=== PATIENT | male | born 1970 | race Asian ===

== ENCOUNTER 2020-03-26 11:13 | Day surgery (SDC) | payer OTHER ==
[~2020-03-26 11:13] MED LIST: SODIUM CHLORIDE 0.9% 1000 ML 1,000 ML IV SCH
--- NOTE | 2020-03-26 13:23 | Anesthesia Day of Surgery ---
Anesthesia Day of Surgery - Day of Surgery Patient Examined: Yes Patient H&P Reviewed: Yes Patient is NPO: Yes
--- NOTE | 2020-03-26 13:23 | Anesthesia Consultation ---
Anesthesia Consult and Med Hx Date of service: 03/26/20 - Airway Anesthetic Teeth Evaluation: Poor ROM Head & Neck: Adequate Mental/Hyoid Distance: Adequate Mallampati Class: Class III Intubation Access Assessment: Possibly Difficult - Pulmonary Exam CTA: Yes - Cardiac Exam Cardiac Exam: RRR - Pre-Operative Health Status ASA Pre-Surgery Classification: ASA2 Proposed Anesthetic Plan: MAC - Pulmonary Hx Smoking: No Hx Respiratory Symptoms: No - Cardiovascular System Hx Hypertension: Yes Hx Heart Attack/AMI: No Hx Percutaneous Transluminal Coronary Angioplasty (PTCA): No - Central Nervous System CVA: No - Gastrointestinal Hx Gastroesophageal Reflux Disease: No - Endocrine Hx Renal Disease: No Hx Liver Disease: No Hx Non-Insulin Dependent Diabetes: Yes Hx Thyroid Disease: No - Other Systems Hx Obesity: No
[2020-03-26] MEDS ORDERED: LIDOCAINE MPF (2%) 20 MG/1 ML VIAL 5 ML ONE (14:35)
[2020-03-26] MEDS ORDERED: propofoL 200 MG/20 ML VIAL IV ONE (14:35)
--- NOTE | 2020-03-26 15:07 | Procedure Note ---
Date of procedure: 03/26/20 Pre-op diagnosis: Colon Polyp Screening/ F/H/O Cancer (Stomach cancer-mother) Post-op diagnosis: other (Rectal Polyp (sessile-removed by hot,snare polypectomy)/ Minor,Internal Hemorrhoid) Procedure: Colonoscopy with Hot Snare Polypectomy Anesthesia: MAC Surgeon: MONICA VIVEROS Estimated blood loss: minimal Pathology: list Specimen disposition: to lab Condition: stable Disposition: same day (Avoid aspirin and NSAID for 5 days; otherwise resume home medication and follow up in 1 to 2 weeks ([phone]).)
--- NOTE | 2020-03-26 15:34 | Operative Report ---
PROCEDURE: Colonoscopy with snare polypectomy. INDICATIONS: A 49-year-old [place] gentleman originally from [facility] with a family history of cancer. The patient's mother had stomach cancer. Colonoscopy was done because of his age. The patient has an underlying history of diabetes mellitus and hypertension. DESCRIPTION OF PROCEDURE: Procedure was done after getting informed consent with MAC anesthesia. Initial rectal exam was unremarkable. Instrument was passed through the rectum onto the cecum, which was identified by the ileocecal valve and the appendiceal orifice. The terminal ileum was briefly intubated, showed normal mucosa, cecum, ascending colon, transverse colon, descending colon and the sigmoid showed normal mucosa. There was no evidence of any polyps, colitis or diverticular disease. However, in the proximal rectum, there was a 10-11 mm in diameter sessile polyp noted. Photodocumentation was obtained and it was excised with a snare excision and retrieved. The rectum showed some minor internal hemorrhoid on the retroverted view. There was minimal bleeding from the polypectomy site. ASSESSMENT: Visualization was fair to good. ASSESSMENT: Colon polyp screening, family history of cancer, mother had stomach cancer, rectal polyp that was removed by hot snare polypectomy, minor internal hemorrhoid. PLAN: To have the patient avoid aspirin and aspirin-related products for the next few days and resume, otherwise, other medications and follow up in the office in 1-2 weeks' time. JOB# [id number] [email or web address]
[2020-03-26 15:46] VITALS: BP 130/77
--- NOTE | 2020-03-26 15:59 | Post Anesthesia Evaluation ---
- Post Anesthesia Evaluation Patient Participated: Yes Airway Patent: Yes Stable Respiratory Function: Yes Nausea/Vomiting: No Temp > 96.8F: Yes Pain Manageable: Yes Adequeate Hydration: Yes Anesthesia Complications: No
== END 2020-03-26 16:15 | disposition home or self-care (01) ==
LOC: GIO 11:13
DX: Z12.11 Encounter for screening for malignant neoplasm of colon (principal); K64.8 Other hemorrhoids; K62.1 Rectal polyp; E11.9 Type 2 diabetes mellitus without complications; I10 Essential (primary) hypertension; E78.00 Pure hypercholesterolemia, unspecified; K21.9 Gastro-esophageal reflux disease without esophagitis; F41.9 Anxiety disorder, unspecified; Z80.0 Family history of malignant neoplasm of digestive organs; Z79.899 Other long term (current) drug therapy; Z79.84 Long term (current) use of oral hypoglycemic drugs; Z79.82 Long term (current) use of aspirin
CPT/HCPCS: 45385; 82962; 88305; J2704; J7030